=== PATIENT | female | born 1975 | race Caucasian/White ===

== ENCOUNTER 2022-06-15 12:30 | Emergency (ER) | payer BC ==
[2022-06-15] MEDS ORDERED: DIPHTH,PERTUSS(ACELL),TET 0.5 ML DISP.SYRIN IM ONE ×2 (13:04→13:38)
[2022-06-15 13:12] VITALS: BP 120/85; PULSE 75; RESP 15; TEMP 98.5; BMI 20.7
== END 2022-06-15 14:06 | disposition home or self-care (01) ==
LOC: FER 12:30
PROC: 0HQFXZZ Repair Right Hand Skin, External Approach (ICD-10-PCS; principal; 2022-06-15)
PROC: 2W3JX1Z Immobilization of Right Finger using Splint (ICD-10-PCS; 2022-06-15)
PROC: 3E0234Z Introduction of Serum, Toxoid and Vaccine into Muscle, Percutaneous Approach (ICD-10-PCS; 2022-06-15)
DX: S61.216A Laceration without foreign body of right little finger without damage to nail, initial encounter (principal); W25.XXXA Contact with sharp glass, initial encounter
CPT/HCPCS: 73140-TC-RT-FY; 90471; 90715; 99284-25